=== PATIENT | female | born 1990 | race Caucasian/White ===

== ENCOUNTER → 2023-07-13 10:20 | Outpatient (REF) | payer OTHER, SELFPAY | LOC: PNTC 10:20 | PROVIDERS: ATTENDING PHYSICIAN Obstetrics & Gynecology | DX: O99.210 Obesity complicating pregnancy, unspecified trimester (principal); O09.529 Supervision of elderly multigravida, unspecified trimester | CPT/HCPCS: 76805 ==

== ENCOUNTER → 2023-08-06 10:26 | Outpatient (REF) | payer OTHER, SELFPAY | LOC: PNTC 10:26 | PROVIDERS: ATTENDING PHYSICIAN Obstetrics & Gynecology | DX: O99.210 Obesity complicating pregnancy, unspecified trimester (principal); O09.529 Supervision of elderly multigravida, unspecified trimester | CPT/HCPCS: 76811 ==

== ENCOUNTER → 2023-09-17 10:05 | Outpatient (REF) | payer OTHER, SELFPAY | LOC: PNTC 10:05 | PROVIDERS: ATTENDING PHYSICIAN Obstetrics & Gynecology | DX: O09.529 Supervision of elderly multigravida, unspecified trimester (principal); O99.210 Obesity complicating pregnancy, unspecified trimester | CPT/HCPCS: 76816 ==

== ENCOUNTER → 2023-10-08 13:42 | Outpatient (REF) | payer OTHER, SELFPAY | LOC: PNTC 13:42 | PROVIDERS: ATTENDING PHYSICIAN Obstetrics & Gynecology | DX: Z34.90 Encounter for supervision of normal pregnancy, unspecified, unspecified trimester (principal) | CPT/HCPCS: 86850; 86900; 86901; J2790 ==

== ENCOUNTER 2023-10-19 22:55 | Emergency (ER) | payer OTHER, SELFPAY ==
[2023-10-19 22:58] VITALS: BP 150/97
[2023-10-20 00:18] VITALS: BP 120/68
[2023-10-20 01:25] LABS: Hemoglobin 11.8 g/dL (12.0-16.0); Mean Corp Hgb Conc. 34.7 g/dL (33.0-37.0); Mean Corpuscular Hgb 30.6 pg (27.0-31.0); Mean Corpuscular Volume 88.1 fL (81.0-99.0); Platelet Count 175 10^3/uL (130-400); Red Blood Cell Count 3.86 10^6/uL (4.20-5.40); Red Cell Dist. Width 12.9 % (11.5-14.5); White Blood Cell Count 10.3 10^3/uL (4.8-10.8)
[2023-10-20 01:26] LABS: Urine Albumin Negative (Neg - Trace); Urine Bilirubin Negative (Negative); Urine Character Clear (Clear); Urine Color Yellow; Urine Glucose Negative (Negative); Urine Ketone Negative (Negative); Urine Leukocyte Negative (Negative); Urine Nitrite Negative (Negative); Urine Occult Blood Negative (Negative); Urine Specific Gravity 1.025 (<1.030); Urine Urobilinogen Negative (Neg - 1+)
[2023-10-20 01:39] LABS: Blood Urea Nitrogen 9 mg/dl (7-17); Calcium 9.4 mg/dl (8.4-10.2); Carbon Dioxide 20 mmol/L (22-30); Chloride 106 mmol/L (98-107); Glucose 95 mg/dl (70-99); Potassium 3.7 mmol/L (3.5-5.1); Sodium 137 mmol/L (135-145); eGFR > 60.00
[2023-10-20 02:07] VITALS: BP 111/60
--- NOTE | 2023-10-20 07:52 | ED.GENMED ---
History of Present Illness
General
Chief Complaint: DVT/Possible Blood Clot
Source: patient
Exam Limitations: none
Time Seen by Provider: 10/20/23 00:14
Nursing documentation reviewed up to this point in time: agreed with
Travel History
Have you had any contact with someone who has COVID-19?: No
Do you have any symptoms of coronavirus? Fever > 100 degrees, chills, cough, shortness of breath, sore throat, loss of taste or smell, muscle aches, or headache?: No
History of Present Illness
History of Present Illness:
33-year-old female with no significant chronic medical issues who is currently 31 weeks G6, P5 who presents to the emergency room for evaluation of left leg swelling. Patient reports she had a minor trip and fall onto her left knee last
week. Sustained an abrasion to the knee. Since then has had some mild swelling in the knee. Over the past few days noticed some swelling in the foot and today swelling in the foot was much worse and extended up to the ankle and calf. Sent to the
emergency room for evaluation. By the time of my assessment she says symptoms seem to have improved from having her leg upright in the bed. She denies any redness of the leg. She denies any chest pain or shortness of breath. She denies any other
complaints.
Past History
Past History
ED Past Medical History: None and Other
Social History
Tobacco: Non-smoker
Alcohol: None
Personal: Single
Review of Systems
Review of Systems
All Other Systems: ROS reviewed and negative except as documented in HPI and ROS
Respiratory: Denies trouble breathing
Cardiac: Denies chest pain
Musculoskeletal: Reports edema
Skin: Denies rash
Phy Exam
Physical Exam
Physical Exam:
General: Awake, alert, oriented x3; no acute distress
Head: Normocephalic, atraumatic
Eyes: Conjunctiva normal
Throat: Airway intact, handling secretions
Neck: Trachea midline, supple without meningismus
Lungs: Breathing comfortably not in distress
Heart: Regular rate
Abd: Appropriate size for gestational age
Neuro: No gross deficits
Skin: no rash
Extremities: Patient has trace edema in the ankles bilaterally which appears symmetric; she has minor abrasion to the left knee
Scores
Heart Failure Risk
Heart Failure Risk Score: Not Applicable
Heart Score for Chest Pain Patients
STEMI patient?: Not applicable
Withdrawal Assessment of Alcohol
Withdrawal Assessment Completed?: Not applicable
Course
Orders/Labs/Results
Orders:
Orders
10/19/23 23:01
Legs, left US [US Periph Venous LOWER Ext LT] Urgent
Comment:
Reason For Exam: left calf pain
10/20/23 01:12
Basic Metabolic Panel Urgent
Complete Blood Count/No Diff Urgent
Urinalysis Reflex To Culture Urgent
Date Specimen was Collected: 10/20/23
Time Specimen was Collected: 00:58
Abnormal Lab Results
10/20/23
01:12
RBC 3.86 L 10^6/uL
(4.20-5.40)
Hgb 11.8 L g/dL
(12.0-16.0)
Hct 34.0 L %
(37.0-47.0)
Carbon Dioxide 20 L mmol/L
(22-30)
Creatinine 0.5 L mg/dL
(0.6-1.0)
10/20/23 01:12
10/20/23 01:12
Vital Signs
Initial and Last Documented VS:
Initial Vital Signs
Temp Pulse Resp BP Pulse Ox
36.8 C 92 20 150/97 99
10/19/23 22:58 10/19/23 22:58 10/19/23 22:58 10/19/23 22:58 10/19/23 22:58
Last Documented Vital Signs
Temp Pulse Resp BP Pulse Ox
36.6 C 71 20 111/60 100
10/20/23 00:36 10/20/23 00:36 10/19/23 22:58 10/20/23 02:07 10/20/23 00:36
MDM/Problems Addressed
Differential Diagnosis Includes:
DVT, dependent edema
MDM/Problems Addressed:
33-year-old female presents for evaluation of left leg swelling which seems to have improved by the time of my assessment�she says it has been worse since she had a minor trip and fall onto her left knee. Notably she was hypertensive in triage
although this was isolated reading and has been normotensive since. Rest of her vitals are normal. Exam as above. She was sent for an ultrasound of the left lower extremity which was negative for DVT. Because of the episode of hypertension we
did send basic labs to evaluate for any signs of preeclampsia�platelets normal, urinalysis negative for protein. She was observed with persistently normal blood pressures after this initial triage hypertension. Suspect her presenting complaint of
leg swelling is related to dependent edema. Advised elevation and compression. Regarding her blood pressure�clinical picture not consistent with preeclampsia, recommended to follow-up with [facility] and will monitor blood pressure. Spoke about
return precautions all questions answered.
Acute Exacerbation and/or Progression of Chronic Illness: HTN
*Pulse Oximetry
Patient hypoxic: no
*Critical Care Note
Total Time (30-74mins, 75-104mins- exclusive of procedures): Not Applicable
Data Reviewed
Source: patient
ED Attending Note
-
Portions of this chart may have been created with voice recognition software.� Occasional wrong word or��sound alike� substitutions may have occurred due to the inherent limitations of voice recognition software.
Discharge Plan
Departure
Patient Disposition: Home (Routine Discharge)
Date of Disposition: 10/20/23
Time of Disposition: 02:01
Patient with high blood pressure during this ER visit?: Yes
Discharge Problem:
Edema
Instructions: Swelling
Prescriptions:
No Action
[id number]-docusate 1 UDTAB tablet
1 tab PO DAILY
cetirizine [Zyrtec] 5 MG tablet
5 mg PO PRN PRN (Reason: seasonal allergies)
acetaminophen 325 mg Tablet
650 mg PO Q4HPRN PRN (Reason: mild pain) Qty: 0 0RF
ibuprofen 600 mg Tablet
600 mg PO Q4HPRN PRN (Reason: moderate pain/cramps) Qty: 0 0RF
Activity Restrictions/Additional Instructions:
Thank you for visiting the Emergency Department at [facility].
1. Please schedule a follow up appointment as directed. Call first thing tomorrow morning to make an appointment.
2. If indicated, please take your medications as instructed and indicated on discharge paperwork.
3. If any of your symptoms do not improve, or persist, or become more severe within 6-12 hours, please return to the emergency department for further care.
4. Please return to the emergency department if you develop a headache, neck pain/stiffness, fever greater than 100.4F, chest pain, shortness of breath, persistent nausea, vomiting, slurred speech, difficulty walking, numbness/tingling, weakness,
signs of infection or any other symptoms that are worrisome to you.
Please call [phone] if you have any questions.
Interventions
Interventions:
*Risk Screen - Suicide Last Done: 10/19/23 22:58
*General Assessment Last Done: 10/19/23 22:58
*Neglect/Abuse Screening Last Done: 10/19/23 22:58
ED- Fall Risk Assessment Last Done: 10/20/23 00:00
*ED COVID-19 Vaccine History Last Done: 10/20/23 00:00
*Nursing Disposition Last Done: 10/20/23 00:00
ED-Skin Assessment Last Done: 10/20/23 02:42
Discharge Date and Time
Discharge Date/Time: 10/20/23 02:15
Print Language: [id number]
== END 2023-10-20 02:15 | disposition home or self-care (01) ==
LOC: EMR 22:55
PROVIDERS: EMERGENCY PHYSICIAN Emergency Medicine; FAMILY PHYSICIAN Family Medicine
DX: O26.893 Other specified pregnancy related conditions, third trimester (principal); O12.03 Gestational edema, third trimester; Z3A.31 31 weeks gestation of pregnancy; R60.0 Localized edema; S80.212A Abrasion, left knee, initial encounter; W01.0XXA Fall on same level from slipping, tripping and stumbling without subsequent striking against object, initial encounter; R03.0 Elevated blood-pressure reading, without diagnosis of hypertension; Z90.49 Acquired absence of other specified parts of digestive tract; Z87.440 Personal history of urinary (tract) infections
CPT/HCPCS: 99284; 80048; 81003; 85027; 93971

== ENCOUNTER → 2023-10-29 10:10 | Outpatient (REF) | payer OTHER, SELFPAY | LOC: PNTC 10:10 | PROVIDERS: ATTENDING PHYSICIAN Obstetrics & Gynecology | DX: O99.210 Obesity complicating pregnancy, unspecified trimester (principal); O09.529 Supervision of elderly multigravida, unspecified trimester; O09.40 Supervision of pregnancy with grand multiparity, unspecified trimester | CPT/HCPCS: 76816 ==

== ENCOUNTER → 2023-11-11 14:10 | Outpatient (REF) | payer OTHER, SELFPAY | LOC: PNTC 14:10 | PROVIDERS: ATTENDING PHYSICIAN Obstetrics & Gynecology | DX: O09.529 Supervision of elderly multigravida, unspecified trimester (principal); O99.210 Obesity complicating pregnancy, unspecified trimester | CPT/HCPCS: 59025; 76815 ==

== ENCOUNTER → 2023-11-18 15:50 | Outpatient (REF) | payer OTHER, SELFPAY | LOC: PNTC 15:50 | PROVIDERS: ATTENDING PHYSICIAN Obstetrics & Gynecology | DX: O09.519 Supervision of elderly primigravida, unspecified trimester (principal); O99.210 Obesity complicating pregnancy, unspecified trimester | CPT/HCPCS: 59025 ==

== ENCOUNTER → 2023-11-26 10:39 | Outpatient (REF) | payer OTHER, SELFPAY | LOC: PNTC 10:39 | PROVIDERS: ATTENDING PHYSICIAN Obstetrics & Gynecology | DX: O09.529 Supervision of elderly multigravida, unspecified trimester (principal); O99.210 Obesity complicating pregnancy, unspecified trimester | CPT/HCPCS: 76816 ==

== ENCOUNTER → 2023-12-03 10:35 | Outpatient (REF) | payer OTHER, SELFPAY | LOC: PNTC 10:35 | PROVIDERS: ATTENDING PHYSICIAN Obstetrics & Gynecology | DX: O99.210 Obesity complicating pregnancy, unspecified trimester (principal); O09.529 Supervision of elderly multigravida, unspecified trimester | CPT/HCPCS: 36415; 59025; 76815 ==

== ENCOUNTER → 2023-12-10 10:34 | Outpatient (REF) | payer OTHER, SELFPAY | LOC: PNTC 10:34 | PROVIDERS: ATTENDING PHYSICIAN Obstetrics & Gynecology | DX: O99.210 Obesity complicating pregnancy, unspecified trimester (principal); O09.219 Supervision of pregnancy with history of pre-term labor, unspecified trimester | CPT/HCPCS: 59025; 76815 ==

== ENCOUNTER → 2023-12-17 10:12 | Outpatient (REF) | payer OTHER, SELFPAY | LOC: PNTC 10:12 | PROVIDERS: ATTENDING PHYSICIAN Obstetrics & Gynecology | DX: O09.529 Supervision of elderly multigravida, unspecified trimester (principal); O99.210 Obesity complicating pregnancy, unspecified trimester | CPT/HCPCS: 59025; 76815 ==

== ENCOUNTER 2023-12-20 08:26 | Inpatient (IN) | payer OTHER, SELFPAY ==
[2023-12-20 08:41] VITALS: BP 125/55; BMI 39.2
[2023-12-20] MEDS: LR 1000 IV ×2 (09:03→17:08)
[2023-12-20] MEDS: PENICILLIN 110 UNITS IV (09:04)
[2023-12-20 09:20] LABS: % Basophils 0.4 % (0-2); % Immature Granulocytes 0.6 % (0-0.5); % Monocytes 6.4 % (1.7-9.3); % Neutrophils 71.6 % (42.2-75.2); Absolute Eosinophils 0.1 10^3/uL (0-0.7); Absolute Immature Granulocytes 0.1 10^3/uL (0-0.05); Absolute Lymphocytes 1.6 10^3/uL (1.2-3.4); Absolute Monocytes 0.5 10^3/uL (0.1-0.6); Absolute Neutrophils 5.9 10^3/uL (1.4-6.5); Hematocrit 31.4 % (37.0-47.0); Hemoglobin 10.8 g/dL (12.0-16.0); Mean Corp Hgb Conc. 34.4 g/dL (33.0-37.0); Mean Corpuscular Hgb 28.2 pg (27.0-31.0); Mean Platelet Volume 10.8 fL (7.4-10.4); Nucleated Red Blood Cells % 0 %; Platelet Count 172 10^3/uL (130-400); Red Blood Cell Count 3.83 10^6/uL (4.20-5.40); Red Cell Dist. Width 13.8 % (11.5-14.5); White Blood Cell Count 8.2 10^3/uL (4.8-10.8)
[2023-12-20] MEDS: PITOCIN 30 UNITS/NSS 500 ML IV (12:36)
[2023-12-20] MEDS: PENICILLIN 55 UNITS IV ×3 (13:08→21:06)
[2023-12-20] MEDS: FENTANYL/BUPIVACAINE 100 EPIDURAL (17:41)
[2023-12-20] MEDS: SUBLIMAZE 100 MCG EPIDURAL (17:41)
[2023-12-20] MEDS: TUMS 2 TABLET PO (21:44)
[2023-12-21] MEDS: PITOCIN 30 UNITS/NSS 500 ML IV (00:34)
[2023-12-21] MEDS: PENICILLIN IV (01:03)
[2023-12-21] MEDS: TUMS 2 TABLET PO ×2 (01:19→13:54)
[2023-12-21] MEDS: PROTONIX 40 MG PO (08:23)
[2023-12-21] MEDS: PRENATAL PLUS 1 TABLET PO (08:23)
[2023-12-21] MEDS: TYLENOL 650 MG PO ×3 (10:02→21:18)
[2023-12-21] MEDS: MOTRIN 600 MG PO ×2 (13:54→21:18)
[2023-12-22] MEDS: TYLENOL 650 MG PO ×2 (03:20→23:48)
[2023-12-22] MEDS: MOTRIN 600 MG PO ×4 (03:20→23:48)
[2023-12-22 03:45] LABS: Hematocrit 31.1 % (37.0-47.0); Hemoglobin 10.4 g/dL (12.0-16.0)
[2023-12-22] MEDS: FEOSOL 325 MG PO (08:51)
[2023-12-22] MEDS: PROTONIX 40 MG PO (08:51)
[2023-12-22] MEDS: PRENATAL PLUS 1 TABLET PO (08:51)
[2023-12-22] MEDS: SENOKOT-S 1 TABLET PO (08:51)
[2023-12-22] MEDS: HYPERRHO S-D 1500 UNIT IM (10:49)
[2023-12-22 13:50] LABS: Syphilis/T. pallidum Ab Reflex Negative (Negative)
[2023-12-23] MEDS: PRENATAL PLUS 1 TABLET PO (07:27)
[2023-12-23] MEDS: SENOKOT-S 1 TABLET PO (07:27)
[2023-12-23] MEDS: PROTONIX 40 MG PO (07:27)
[2023-12-23] MEDS: FEOSOL 325 MG PO (07:27)
[2023-12-23] MEDS: MOTRIN 600 MG PO (07:27)
== END 2023-12-23 11:21 | disposition home or self-care (01) | DRG 807 ==
LOC: LDRP 08:26
PROVIDERS: Obstetrics & Gynecology; ADMITTING PHYSICIAN Obstetrics & Gynecology; FAMILY PHYSICIAN Family Medicine
PROC: 10907ZC Drainage of Amniotic Fluid, Therapeutic from Products of Conception, Via Natural or Artificial Opening (ICD-10-PCS; 2023-12-20)
PROC: 10E0XZZ Delivery of Products of Conception, External Approach (ICD-10-PCS; 2023-12-20)
PROC: 0KQM0ZZ Repair Perineum Muscle, Open Approach (ICD-10-PCS; 2023-12-20)
PROC: 3E033VJ Introduction of Other Hormone into Peripheral Vein, Percutaneous Approach (ICD-10-PCS; 2023-12-20)
PROC: 3E0334Z Introduction of Serum, Toxoid and Vaccine into Peripheral Vein, Percutaneous Approach (ICD-10-PCS; 2023-12-23)
DX: O26.893 Other specified pregnancy related conditions, third trimester (principal); Z37.0 Single live birth; O70.1 Second degree perineal laceration during delivery; Z67.41 Type O blood, Rh negative; O48.0 Post-term pregnancy; Z3A.40 40 weeks gestation of pregnancy; O99.214 Obesity complicating childbirth
CPT/HCPCS: 59025; 85014; 85018; 85025; 85461; 86780; 86850; 86870; 86900; 86901; 93971; J2790